=== PATIENT | male | born 1955 | race Two or more races ===

== ENCOUNTER 2016-08-17 01:01 | Inpatient (IN) | payer MEDICARE, OTHER ==
[~2016-08-17] VITALS: Ht 172.7 cm; Wt 90.7 kg
[2016-08-17] MEDS ORDERED: ALBUTEROL FS 2.5 MG/3 ML VIAL.NEB ONE ×2 (01:13→02:03)
[2016-08-17] MEDS ORDERED: IPRATROPIUM NEB FS 0.5 MG/2.5 ML AMPUL.NEB ONE (01:13)
[2016-08-17] MEDS ORDERED: methylPREDNISolone SOD SUCC 125 MG/2ML VIAL ONE (01:19)
--- NOTE | 2016-08-17 01:20 | NUR ---
60 YO MALE BB SELF. PT IS ALERT X 3, C/O SOB. PT AMBULATED TO ER BED, SKIN WARM AND DRY, RR EVREN AND UNLABORED. AWAITING RODERS FORM PROVIDER
[2016-08-17] MEDS ORDERED: ALBUTEROL FS 2.5 MG/3 ML VIAL.NEB CONTNEB ONE ×2 (01:30→02:00)
[2016-08-17] MEDS ORDERED: IPRATROPIUM NEB FS 0.5 MG/2.5 ML AMPUL.NEB NEB ONE (01:30)
[2016-08-17] MEDS ORDERED: methylPREDNISolone SOD SUCC 125 MG/2ML VIAL IV ONE (01:30)
[2016-08-17 01:31] LABS: BASOPHILS # (AUTO) 0.1 /CMM (0.0-0.2); BASOPHILS % (AUTO) 0.7 % (0.0-2.0); EOSINOPHILS # (AUTO) 1.1 /CMM (0.0-0.7); EOSINOPHILS % (AUTO) 8.3 % (0.0-6.0); HEMATOCRIT 52 % (39-51); HEMOGLOBIN 16.8 g/dL (13.5-17.5); LYMPHOCYTES # (AUTO) 2.3 /CMM (0.8-4.8); LYMPHOCYTES % (AUTO) 17.3 % (20.0-44.0); MEAN CORPUSCULAR HEMOGLOBIN 30 PG (26.0-33.0); MEAN CORPUSCULAR HGB CONC 32 g/dl (31.0-36.0); MEAN CORPUSCULAR VOLUME 93 fL (80-96); MONOCYTES # (AUTO) 0.7 /CMM (0.1-1.30); MONOCYTES % (AUTO) 5.5 % (2.0-12.0); NEUTROPHILS # (AUTO) 9.1 /CMM (1.8-8.9); NEUTROPHILS % (AUTO) 68.2 % (43.0-81.0); PLATELET COUNT (AUTO) 310 /CMM (150-450); RDW COEFFICIENT OF VARIATION 15.5 (11.5-15.0); RED BLOOD CELL COUNT(AUTO) 5.61 MIL/uL (4.5-6.0); WHITE BLOOD COUNT (AUTO) 13.3 K/uL (4.3-11.0)
--- NOTE | 2016-08-17 01:31 | NUR ---
MEDICATED PT ORDERED
--- NOTE | 2016-08-17 01:38 | NUR ---
RADIOLOGY TEAM AT BED SIDE FOR EVAL
[2016-08-17 01:43] LABS: CALCIUM, SERUM 9.4 mg/dL (8.5-10.1); CARBON DIOXIDE 34 mmol/L (21-32); CHLORIDE 102 mmol/L (98-107); GFR 76 mL/min (>60); GLUCOSE 92 mg/dL (74-106); POTASSIUM 4.4 mmol/L (3.5-5.1); SODIUM SERUM 141 mmol/L (136-145); UREA NITROGEN, BLOOD 16 mg/dL (7-18)
[2016-08-17 01:49] LABS: TROPONIN I < 0.017 ng/mL (0.00-0.056)
[2016-08-17 01:54] LABS: LACTIC ACID 2.2 mmol/L (0.4-2.0)
[2016-08-17 02:03] LABS: ALANINE AMINOTRANSFERASE 21 U/L (12-78); ALKALINE PHOSPHATASE 110 U/L (46-116); ASPARTATE AMINOTRANSFERASE 10 U/L (15-37); B-TYPE NATRIURETIC PEPTIDE 30 PG/ML (0-125); BILIRUBIN,DIRECT 0.1 mg/dL (0.0-0.2); BILIRUBIN,TOTAL 0.2 mg/dL (0.2-1.0); TOTAL PROTEIN, SERUM 7.5 g/dL (6.4-8.2)
[2016-08-17 02:11] LABS: ABG BASE EXCESS 5.7 mmol/L; ABG PCO2 51.7 mmHg (35.0-45.0); ABG PO2 55.1 mmHg (75.0-100.0); ABG TOTAL HEMOGLOBIN 17.1 G/dL (13.5-18.0); AaDO2 32.7 mmHg; COHb 1.2 % (0.5-1.5); MetHb 0.7 % (0.0-1.5); O2Hb 87.3 % (94.0-97.0); SITE, ABG Right Radial; VENT MODE, BG RA
--- NOTE | 2016-08-17 02:35 | NUR ---
PER MD BENTON, NO IV FLUIDS NEEDED
[2016-08-17] MEDS ORDERED: CALC500T51 PO (02:49)
[2016-08-17] MEDS ORDERED: PROC10TA PO (02:49)
[2016-08-17] MEDS ORDERED: ACYC800T PO (02:49)
[2016-08-17] MEDS ORDERED: CARV25TA2 PO (02:49)
[2016-08-17] MEDS ORDERED: NITR0.3T SL (02:49)
[2016-08-17] MEDS ORDERED: METF-835 PO (02:49)
[2016-08-17] MEDS ORDERED: NEVI400T4 PO (02:49)
[2016-08-17] MEDS ORDERED: ARIP5TAB4 PO (02:49)
[2016-08-17] MEDS ORDERED: HYDR-552 PO (02:49)
[2016-08-17] MEDS ORDERED: GABA-534 PO (02:49)
[2016-08-17] MEDS ORDERED: SERT100T12 PO (02:49)
[2016-08-17] MEDS ORDERED: AMLO10TA2 PO (02:49)
[2016-08-17] MEDS ORDERED: ZOLP10TA6 PO (02:49)
--- NOTE | 2016-08-17 03:55 | NUR ---
MD CHANG NOTIFIED ABOUT LACTIC ACID
--- NOTE | 2016-08-17 03:59 | NUR ---
TRANSPORTED PT TO TELE BED WITHOUG INCIDENT
[2016-08-17 04:00] VITALS: BP 122/76
[2016-08-17] MEDS ORDERED: ACETAMINOPHEN 325 MG TABLET PO PRN (04:00)
[2016-08-17] MEDS ORDERED: ENOXAPARIN SODIUM 40 MG/0.4 ML DISP.SYRIN SQ SCH (04:00)
[2016-08-17] MEDS ORDERED: ONDANSETRON HCL/PF 4 MG/2 ML VIAL IVP PRN (04:00)
[2016-08-17] MEDS ORDERED: MAG HYDROX/AL HYDROX/SIMETH 30 ML UDC PO PRN (04:00)
[2016-08-17] MEDS ORDERED: IPRATROPIUM NEB FS 0.5 MG/2.5 ML AMPUL.NEB NEB PRN (04:00)
[2016-08-17] MEDS ORDERED: LEVOFLOXACIN 750 MG /D5W 150ML 750 MG in PREMIX 1 EA IV SCH (04:00)
[2016-08-17] MEDS ORDERED: ALBUTEROL FS 2.5 MG/3 ML VIAL.NEB NEB PRN (04:00)
[2016-08-17] MEDS ORDERED: ZOLPIDEM TARTRATE 5 MG TABLET PO PRN (04:00)
[2016-08-17] MEDS ORDERED: Z GUARD REMEDY 2 OZ OINT TP PRN (04:00)
[2016-08-17] MEDS ORDERED: MORPHINE SULFATE INJ 2 MG/ML DISP.SYRIN IV PRN (04:00)
[2016-08-17] MEDS ORDERED: MAGNESIUM HYDROXIDE 30 ML UDC PO PRN (04:00)
--- NOTE | 2016-08-17 04:15 | NUR ---
INVESTOR RELATIONS ASSOCIATE ADMITTING NOTE RECEIVED PT COMING FROM ER VIA GURNEY, PT IS AWAKE AND ALERT ORIENTED X4, FRIEND IS AT BEDSIDE, NO PAIN OR RESPIRATORY DISTRESS NOTED DURING PHYSICAL ASSESSMENT, PT IS ABLE TO AMBULATE WITH ASSISTANCE, SKIN IS INTACT, PT IS CLEAN/DRY AND COMFORTABLE, WILL CONTINUE TO MONITOR CLOSELY.
[2016-08-17] MEDS ORDERED: ENOXAPARIN SODIUM 40 MG/0.4 ML DISP.SYRIN SQ ONE (04:49)
[2016-08-17] MEDS ORDERED: LEVOFLOXACIN 500 MG /D5W 100ML 100 ML IV ONE (04:50)
[2016-08-17 05:00] VITALS: BP 122/76
[2016-08-17] MEDS ORDERED: IV NS 0.9% 250 ML IV ONE (05:14)
[2016-08-17] MEDS ORDERED: SECONDARY IV SET 1 EA INFUS.SET MC ONE ×2 (05:35→18:16)
[2016-08-17] MEDS ORDERED: IV SET PRIMARY PUMP SET 1 EA INFUS.SET MC ONE (05:35)
[2016-08-17] MEDS: LEVOFLOXACIN 500 MG /D5W 100ML 500 MG in PREMIX 1 EA IV SCH (05:45)
--- NOTE | 2016-08-17 06:37 | NUR ---
PT REMAINED STABLE DURING FOREST RANGER, ATB GIVEN ORDER, PT SHOWED NO SIGNIFICANT CHANGES IN HIS STATUS, CLEAN/DRY AND COMFORTABLE, SAFETY MEASURES IN PLACE, ALL NEEDS ANTICIPATED AND ATTENDED TO, WILL ENDORSE TO INCOMING NURSE FOR EASTON.
--- NOTE | 2016-08-17 08:00 | NUR ---
CONSERVATION EDUCATOR NOTES PATIENT NOTED WITH O2 SATURATION OF 92 WITHOUT OXYGEN, PATIENT PLACES ON 2L OF OXYGEN VIA NASAL CANULA AND BREATHING TREATMENT PROVIDED BY RT, O2 SATURATION CHECKED ABOVE 95% WILL CONTINUE TO MONITOR.
[2016-08-17 08:41] VITALS: BP 126/78
[2016-08-17] MEDS: ALBUTEROL FS 2.5 MG/3 ML VIAL.NEB NEB SCH ×3 (08:41→20:20)
[2016-08-17] MEDS: IPRATROPIUM NEB FS 0.5 MG/2.5 ML AMPUL.NEB NEB SCH ×3 (08:42→20:20)
[2016-08-17] MEDS: methylPREDNISolone SOD SUCC 125 MG/2ML VIAL IV SCH ×2 (08:55→17:06)
[2016-08-17] MEDS: PANTOPRAZOLE 40 MG TABLET.DR PO SCH (08:55)
[2016-08-17] MEDS: HYDROCODONE/APAP 5/325MG 1 EACH TABLET PO PRN ×2 (08:56→18:28)
[2016-08-17] MEDS: IV NS 0.9% 1,000 ML IV PRN (08:57)
--- NOTE | 2016-08-17 12:00 | NUR ---
MS RN NOTES PATIENT SEEN AND EVALUATED BY DR. MINOR ORDERS NOTED AND CARRIED OUT.
[2016-08-17 14:30] VITALS: BP 134/91
[2016-08-17 16:00] VITALS: BP 116/75
[2016-08-17] MEDS: ACIDOPHILUS/BULGARICUS 1 EACH TAB.CHEW PO SCH (18:21)
[2016-08-17] MEDS: CLINDAMYCIN 600 MG in IV D5W 50 ML IV SCH (18:21)
[2016-08-17] MEDS: PRIMAQUINE 15 MG TABLET PO SCH (18:21)
--- NOTE | 2016-08-17 18:36 | NUR ---
PLASTIC MANAGER NOTES PATIENT IN BED RESTING NO SOB OR ACUTE DISTRESS NOTED. ALL DUE MEDICATIONS GIVEN, ALL NEEDS MET IV INTACT ON RIGHT HAND RUNNING NS AT 75ML/HR WILL ENDORSE TO PM SHIFT EASTON.
--- NOTE | 2016-08-17 19:40 | NUR ---
TELE/RN RECEIVE PATIENT APPEAR SLEEPING, AROUSABLE, APPEAR COMFORTABLE, NO DISTRESS NOTED, CALL LIGHT IN REACH. WILL MONITOR.
[2016-08-17 20:26] VITALS: BP 140/80
--- NOTE | 2016-08-17 21:32 | NUR ---
TELE/RN PATIENT AWAKE. R.T. UNABLE TO OBTAIN SPUTUM SPECIMEN.
[2016-08-18] MEDS: IV NS 0.9% 1,000 ML IV PRN
[2016-08-18 00:22] VITALS: BP 111/69
[2016-08-18] MEDS: ALBUTEROL FS 2.5 MG/3 ML VIAL.NEB NEB SCH ×4 (00:55→19:46)
[2016-08-18] MEDS: IPRATROPIUM NEB FS 0.5 MG/2.5 ML AMPUL.NEB NEB SCH ×4 (00:55→19:46)
[2016-08-18] MEDS: CLINDAMYCIN 600 MG in IV D5W 50 ML IV SCH ×2 (02:26→10:01)
[2016-08-18] MEDS: HYDROCODONE/APAP 5/325MG 1 EACH TABLET PO PRN (02:44)
[2016-08-18] MEDS: LEVOFLOXACIN 500 MG /D5W 100ML 500 MG in PREMIX 1 EA IV SCH (04:01)
[2016-08-18 04:45] VITALS: BP 98/63
--- NOTE | 2016-08-18 06:13 | NUR ---
TELE/RN PATIENT IS SLEEPING, AROUSABLE, NO DISTRESS NOTED. ALL NEEDS ATTENDED AT THIS TIME. WILL CONTINUE TO MONITOR.
[2016-08-18 06:51] LABS: BASOPHILS % (AUTO) 0.2 % (0.0-2.0); HEMATOCRIT 47 % (39-51); HEMOGLOBIN 15.1 g/dL (13.5-17.5); LYMPHOCYTES # (AUTO) 1.5 /CMM (0.8-4.8); LYMPHOCYTES % (AUTO) 10.2 % (20.0-44.0); MEAN CORPUSCULAR HEMOGLOBIN 30 PG (26.0-33.0); MEAN CORPUSCULAR HGB CONC 32 g/dl (31.0-36.0); MEAN CORPUSCULAR VOLUME 93 fL (80-96); MONOCYTES # (AUTO) 0.5 /CMM (0.1-1.30); MONOCYTES % (AUTO) 3.8 % (2.0-12.0); NEUTROPHILS # (AUTO) 12.3 /CMM (1.8-8.9); NEUTROPHILS % (AUTO) 85.8 % (43.0-81.0); PLATELET COUNT (AUTO) 291 /CMM (150-450); RDW COEFFICIENT OF VARIATION 15.3 (11.5-15.0); RED BLOOD CELL COUNT(AUTO) 5.03 MIL/uL (4.5-6.0); WHITE BLOOD COUNT (AUTO) 14.4 K/uL (4.3-11.0)
[2016-08-18 07:08] LABS: CALCIUM, SERUM 8.2 mg/dL (8.5-10.1); CREATININE 1.1 mg/dL (0.6-1.3); MAGNESIUM 1.6 mg/dL (1.8-2.4); PHOSPHORUS 3.6 mg/dL (2.5-4.9)
[2016-08-18 08:00] VITALS: BP 126/84
--- NOTE | 2016-08-18 08:00 | NUR ---
DUCT MAKER NOTED PATIENT IN BED RESTING NO SOB OR ACUTE DISTRESS NOTED. BED IN LOW LOCKED POSITION. CALL LIGHT WITHIN REACH. WILL CONTINUE TO MONITOR. IV INTACT PATENT.
[2016-08-18] MEDS: methylPREDNISolone SOD SUCC 125 MG/2ML VIAL IV SCH ×2 (08:29→17:04)
[2016-08-18] MEDS: PANTOPRAZOLE 40 MG TABLET.DR PO SCH (08:29)
[2016-08-18] MEDS: ACIDOPHILUS/BULGARICUS 1 EACH TAB.CHEW PO SCH ×3 (08:29→17:04)
[2016-08-18] MEDS: ENOXAPARIN SODIUM 40 MG/0.4 ML DISP.SYRIN SQ SCH (08:30)
[2016-08-18 09:00] LABS: *BASOS 0 % (.); *EOS 0 % (.); *EOS, ABSOLUTE 0.1 x10E3/uL (0.0-0.4); *HCT 48.9 % (37.5-51.0); *HGB 16.4 g/dL (12.6-17.7); *IMMATURE GRANULOCYTES 0 % (.); *LYMPHOCYTES 13 % (.); *LYMPHS, ABSOLUTE 1.6 x10E3/uL (0.7-3.1); *MCH 31.6 pg (26.6-33.0); *MCHC 33.5 g/dL (31.5-35.7); *MCV 94 fL (79-97); *MONOCYTES 1 % (.); *MONOS, ABSOLUTE 0.1 x10E3/uL (0.1-0.9); *NEUTROPHILS 86 % (.); *NEUTROPHILS, ABSOLUTE 10.7 x10E3/uL (1.4-7.0); *PLT 297 x10E3/uL (150-379); *RBC 5.19 x10E6/uL (4.14-5.80); *RDW 15.2 % (12.3-15.4); *WBC 12.5 x10E3/uL (3.4-10.8)
[2016-08-18] MEDS: PRIMAQUINE 15 MG TABLET PO SCH (10:00)
--- NOTE | 2016-08-18 10:00 | NUR ---
LOUVER MORTISER OPERATOR NOTES DR. GRIMM INFORMED OF PATIENTS EPISODES OF BRADYCARDIA. PATIENTS PULSE AT 78 NO SIGNS OF DISTRESS NOTED. DENIES ANY DIZZINESS OR WEAKNESS. DR. ARAIZA WILL EVALUATE PATIENT. Addendum: 08/18/16 at 1657 by MAILE GARIBAY RN ERROR WRONG PATIENT.
--- NOTE | 2016-08-18 12:00 | NUR ---
CIRCULATION CREW LEADER NOTES PATIENT SEEN AND EVALUATED BY DR. HERNANDEZ ORDERS NOTED AND CARRIED OUT.
--- NOTE | 2016-08-18 13:00 | NUR ---
MS RN NOTES DR. MINOR REMINDED OF PATIENTS MEDICATION RECONCILIATION OF HOME MEDICATIONS, STATES WILL DO.
[2016-08-18] MEDS: Magnesium 1GM/D5W 100ML PREMIX 100 ML IV SCH ×2 (13:47→15:10)
[2016-08-18] MEDS ORDERED: SODIUM CL FOR INHALATION 3% 15 ML VIAL.NEB IH ONE (14:00)
[2016-08-18 14:21] LABS: *% CD 4 POS. LYMPH 14.7 % (30.8-58.5); *% CD 8 POS. LYMPH 37.6 % (12.0-35.5); *ABSOLUTE CD 4 HELPER 235 /uL (359-1519); *ABSOLUTE CD 8 SUPPRESSOR 602 /uL (109-897); *CD4/CD8 RATIO 0.39 (0.92-3.72)
[2016-08-18 16:00] VITALS: BP 128/81
--- NOTE | 2016-08-18 18:16 | NUR ---
SEWING TECHNIQUES DEMONSTRATOR NOTES PATIENT IN BED RESTING NO SOB OR ACUTE DISTRESS NOTED. IV INTACT PATENT. DENIES ANY DISTRESS. ALL DUE MEDICATIONS GIVEN. ALL NEEDS MET WILL ENDORSE TO PM SHIFT EASTON.
--- NOTE | 2016-08-18 19:00 | NUR ---
RN NOTE RECEIVED REPORT. PT AAOX4, UP OUT OF BED. APPEARS TO BE CRYING, SAID HE WANTS TO GO HOME. NO C/O OF PAIN OR DISCOMFORT AT THIS TIME, NO C/O OF SOB. BREATHING EVEN AND NON-LABORED. R HAND INTACT AND PATENT, FLUIDS OFF AT THIS TIME PER PT REQUEST. CALL LIGHT IN REACH, WILL CONT TO MONITOR.
[2016-08-18 20:00] VITALS: BP 145/96
[2016-08-19] MEDS: IPRATROPIUM NEB FS 0.5 MG/2.5 ML AMPUL.NEB NEB SCH ×2 (00:57→13:15)
[2016-08-19] MEDS: ALBUTEROL FS 2.5 MG/3 ML VIAL.NEB NEB SCH ×2 (00:57→08:30)
--- NOTE | 2016-08-19 01:20 | NUR ---
RN NOTE PT RESTING IN BED WITH EYES CLOSED. NO S/S OF ANY DISTRESS. WILL CONT TO MONITOR.
[2016-08-19] MEDS ORDERED: ZOLPIDEM TARTRATE 10 MG TABLET ONE (01:44)
[2016-08-19] MEDS ORDERED: ZOLPIDEM TARTRATE 5 MG TABLET ONE (01:46)
[2016-08-19] MEDS ORDERED: ZOLPIDEM TARTRATE 5 MG TABLET PO ONE (02:00)
[2016-08-19] MEDS: LEVOFLOXACIN 500 MG /D5W 100ML 500 MG in PREMIX 1 EA IV SCH (04:25)
--- NOTE | 2016-08-19 06:39 | NUR ---
RN NOTE NO SIGNIFICANT CHANGES THIS SHIFT. PT RESTING IN BED WITH EYES CLOSED, NO SOB OR WHEEZING NOTED. ON NC @ 1L. NO S/S OF ANY DISTRESS. IV PATENT AND INTACT, TOLERATING FLUIDS WELL. CALL LIGHT IN REACH, WILL F/U WITH DAY SHIFT FOR EASTON.
[2016-08-19 07:12] LABS: CALCIUM, SERUM 8.6 mg/dL (8.5-10.1); MAGNESIUM 2.2 mg/dL (1.8-2.4); POTASSIUM 3.9 mmol/L (3.5-5.1)
--- NOTE | 2016-08-19 07:31 | NUR ---
RN AM NOTES RECEIVED PATIENT IN BED ASLEEP, BUT AROUSABLE, A/O X3. WISHES TO DISCHARGE TODAY, MD AWARE, CHARGE NURSE AWARE. WILL CONTINUE TO MONITOR.
[2016-08-19 08:00] VITALS: BP 128/80
[2016-08-19] MEDS: ACIDOPHILUS/BULGARICUS 1 EACH TAB.CHEW PO SCH ×2 (08:09→13:00)
[2016-08-19] MEDS: methylPREDNISolone SOD SUCC 125 MG/2ML VIAL IV SCH (08:09)
[2016-08-19] MEDS: PANTOPRAZOLE 40 MG TABLET.DR PO SCH (08:09)
[2016-08-19] MEDS: ENOXAPARIN SODIUM 40 MG/0.4 ML DISP.SYRIN SQ SCH (08:11)
[2016-08-19] MEDS ORDERED: predniSONE 20 MG TABLET PO SCH (10:30)
--- NOTE | 2016-08-19 10:30 | NUR ---
PATIENT REFUSED MEDICATION BECAUSE HE IS ABOUT TO GO HOME AND DOES NOT WANT TO TAKE ANY MORE MEDS HERE. EXPLAINED RISKS AND BENEFITS. PATIENT STILL REFUSED.
--- NOTE | 2016-08-19 13:00 | NUR ---
PATIENT REFUSED PROBIOTIC BECAUSE HE JUST WANTS TO GO HOME. AWAITING DISCHARGE PAPERWORK.
--- NOTE | 2016-08-19 14:45 | NUR ---
ADDICTIONS COUNSELOR ASSISTANT NOTES PATIENT DISCHARGED HOME IN STABLE CONDITION, NO SOB OR DISTRESS NOTED. ACCOMPANIED BY PARTNER AND LEFT IN PRIVATE CAR WITH PERSONAL BELONGINGS. RX GIVEN ALONG WITH DISCHARGE PACKET. PATIENT TEACHING DONE. PATIENT LEFT FACILITY SAFELY.
== END 2016-08-19 14:35 | disposition home or self-care (01) | DRG 974 ==
LOC: ER 01:03 → TELE 03:35 → MED 08-18 12:40
PROVIDERS: ADMIT Family Medicine; ATTEND Internal Medicine
DX: B20 Human immunodeficiency virus [HIV] disease (principal); J96.01 Acute respiratory failure with hypoxia; B59 Pneumocystosis; J96.02 Acute respiratory failure with hypercapnia; J45.901 Unspecified asthma with (acute) exacerbation; J98.11 Atelectasis; E11.9 Type 2 diabetes mellitus without complications; I10 Essential (primary) hypertension; F32.9 Major depressive disorder, single episode, unspecified; E66.01 Morbid (severe) obesity due to excess calories; G47.33 Obstructive sleep apnea (adult) (pediatric); J20.9 Acute bronchitis, unspecified
CPT/HCPCS: 36415; 36600; 71010-TC; 80048-TC; 80076-TC; 82103; 83605-TC; 83735-TC; 83880; 84100-TC; 84484-TC; 85025-TC; 85378-TC; 86360; 87040-TC; 87070-TC; 87081-TC; 87400; 93307-TC; 94640-TC; 94799-TC; 97001-TC; A4216; A4218; A4606; J1650; J1956; J2930; J3475; J3490; J7030; J7050; J7060; Z7610

== ENCOUNTER 2016-12-31 17:40 | Inpatient (IN) | payer MEDICARE ==
[~2016-12-31] VITALS: Ht 175.3 cm; Wt 117.9 kg
[~2016-12-31 17:40] MED LIST: ACYC800T PO; AMLO10TA2 PO; ARIP5TAB4 PO; CALC500T51 PO; CARV25TA2 PO; GABA-534 PO; HYDR-552 PO; METF-835 PO; NEVI400T4 PO; NITR0.3T SL; PROC10TA PO; SERT100T12 PO; ZOLP10TA6 PO
--- NOTE | 2016-12-31 17:43 | NUR ---
LACIE LYNNHOLYOKE MEDICAL CENTERJovanny FOR SOB X TODAY. PATIENT RECEIVED AAO4. APPEARS IN MILD DISTRESS, PT CURRENTLY ON BREATHING TX, SATING 97% ON ROOM AIR AT THIS TIME. PATIENT DENIES CHEST PAIN. GOWNED AND PLACED PT TO TELE MONITOR. VSS. PENDING MD EVALUATION
[2016-12-31] MEDS ORDERED: ASPIRIN 81 MG TAB.CHEW ONE (18:15)
[2016-12-31] MEDS ORDERED: methylPREDNISolone SOD SUCC 125 MG/2ML VIAL ONE (18:15)
--- NOTE | 2016-12-31 18:18 | NUR ---
CALLED RT FOR BREATHING TX
--- NOTE | 2016-12-31 18:19 | NUR ---
MEDICATED PT ORDERED
[2016-12-31 18:20] LABS: BASOPHILS # (AUTO) 0.1 /CMM (0.0-0.2); BASOPHILS % (AUTO) 0.9 % (0.0-2.0); EOSINOPHILS # (AUTO) 0.8 /CMM (0.0-0.7); EOSINOPHILS % (AUTO) 6.8 % (0.0-6.0); HEMATOCRIT 48 % (39-51); HEMOGLOBIN 15.9 g/dL (13.5-17.5); LYMPHOCYTES # (AUTO) 1.9 /CMM (0.8-4.8); LYMPHOCYTES % (AUTO) 15.5 % (20.0-44.0); MEAN CORPUSCULAR HEMOGLOBIN 32 PG (26.0-33.0); MEAN CORPUSCULAR HGB CONC 33 g/dl (31.0-36.0); MEAN CORPUSCULAR VOLUME 95 fL (80-96); MONOCYTES # (AUTO) 0.9 /CMM (0.1-1.30); MONOCYTES % (AUTO) 7.9 % (2.0-12.0); NEUTROPHILS # (AUTO) 8.3 /CMM (1.8-8.9); NEUTROPHILS % (AUTO) 68.9 % (43.0-81.0); PLATELET COUNT (AUTO) 238 /CMM (150-450); RDW COEFFICIENT OF VARIATION 14.9 (11.5-15.0); RED BLOOD CELL COUNT(AUTO) 5.03 MIL/uL (4.5-6.0)
--- NOTE | 2016-12-31 18:29 | NUR ---
RT AT BS FOR BREATHING TX
[2016-12-31] MEDS ORDERED: ASPIRIN 81 MG TAB.CHEW PO ONE (18:30)
[2016-12-31] MEDS ORDERED: ALBUTEROL FS 2.5 MG/3 ML VIAL.NEB CONTNEB ONE ×2 (18:30)
[2016-12-31] MEDS ORDERED: methylPREDNISolone SOD SUCC 125 MG/2ML VIAL IV ONE (18:30)
[2016-12-31] MEDS ORDERED: IPRATROPIUM NEB FS 0.5 MG/2.5 ML AMPUL.NEB NEB ONE (18:30)
[2016-12-31 18:31] LABS: CALCIUM, SERUM 8.6 mg/dL (8.5-10.1); CARBON DIOXIDE 31 mmol/L (21-32); CHLORIDE 101 mmol/L (98-107); CREATININE 0.8 mg/dL (0.6-1.3); GLUCOSE 100 mg/dL (74-106); POTASSIUM 3.8 mmol/L (3.5-5.1); SODIUM SERUM 139 mmol/L (136-145); UREA NITROGEN, BLOOD 18 mg/dL (7-18)
[2016-12-31] MEDS ORDERED: ALBUTEROL FS 2.5 MG/3 ML VIAL.NEB ONE (18:31)
[2016-12-31] MEDS ORDERED: IPRATROPIUM NEB FS 0.5 MG/2.5 ML AMPUL.NEB ONE (18:31)
[2016-12-31 18:33] LABS: INR 1.02 (0.87-1.13); PROTHROMBIN TIME 10.6 SECS (9.5-12.7)
[2016-12-31] MEDS ORDERED: ABAC1TAB3 PO (18:33)
[2016-12-31] MEDS ORDERED: METF500T4 PO (18:33)
[2016-12-31] MEDS ORDERED: ALBU8.5H2 IH (18:33)
[2016-12-31] MEDS ORDERED: PROC10TA29 PO (18:33)
[2016-12-31 18:40] LABS: TROPONIN I < 0.017 ng/mL (0.00-0.056)
[2016-12-31 18:44] LABS: ALANINE AMINOTRANSFERASE 24 U/L (12-78); ALBUMIN 4.2 g/dL (3.4-5.0); ALKALINE PHOSPHATASE 106 U/L (46-116); ASPARTATE AMINOTRANSFERASE 15 U/L (15-37); B-TYPE NATRIURETIC PEPTIDE 93 PG/ML (0-125); BILIRUBIN,DIRECT 0.1 mg/dL (0.0-0.2); BILIRUBIN,TOTAL 0.5 mg/dL (0.2-1.0); TOTAL PROTEIN, SERUM 7.2 g/dL (6.4-8.2)
[2016-12-31] MEDS ORDERED: LEVOFLOXACIN 750 MG /D5W 150ML 150 ML IV ONE (18:51)
[2016-12-31] MEDS ORDERED: LEVOFLOXACIN 750 MG /D5W 150ML PIGGYBACK IV ONE (19:00)
--- NOTE | 2016-12-31 19:17 | NUR ---
DEEJAY MEDEL SPOKE TO [facility].
--- NOTE | 2016-12-31 19:18 | NUR ---
MAYNOR JEAN AT BEDSIDE TO KATHY YUEN
--- NOTE | 2016-12-31 19:29 | NUR ---
CONTINUITY OF CARE TRANSFERRED TO NURSE ED
--- NOTE | 2016-12-31 19:59 | NUR ---
NOTED PT O2 SAT 88% ON RA. PLACE PT BACK ON 02@2L/NC, O2 SAT INCREASED TO 96%.
[2016-12-31] MEDS ORDERED: ALBUTEROL FS 2.5 MG/0.5 ML VIAL.NEB NEB PRN ×2 (20:00→20:15)
[2016-12-31] MEDS ORDERED: NITROGLYCERIN 0.4 MG/TAB BOTTLE SL PRN ×2 (20:00→20:15)
[2016-12-31] MEDS ORDERED: IPRATROPIUM NEB FS 0.5 MG/2.5 ML AMPUL.NEB NEB PRN ×2 (20:00→20:15)
--- NOTE | 2016-12-31 20:12 | NUR ---
REPORT CALLED TO TELE 1 DEE MARTIN. WILL TRANSPORT PT VIA ACLS PRTOCOL.
[2016-12-31 20:20] VITALS: BP 126/84
--- NOTE | 2016-12-31 20:20 | NUR ---
venkata rn notes received pts AND report from er nurse ED, pts is 61 y/o a/ox4 ambulatory, accpd by friend charles , under the service of eligibility examiner lorne ochoa. with admitting dx of acute asthma exacerbation , admission routine care rendered , body checked done, noted with bilateral knee redness otherwise skin is intact.pts on venkata status tele -sr on the monitor, no sob no distress noted v/s stable afebrile.allergy to sulfa . pts on 4 liters of o2 via nc. sating 93%. all needs attended too call light within reach , due meds given as ordered, kept pts clean dry and comfortable.
[2016-12-31] MEDS ORDERED: methylPREDNISolone SOD SUCC 40 MG/ML VIAL IV SCH (21:00)
[2016-12-31] MEDS: methylPREDNISolone SOD SUCC 40 MG/ML VIAL IV SCH (21:00)
--- NOTE | 2016-12-31 21:00 | NUR ---
venkata rn notes solumedrol and Levaquin dose for 2100hrs not given due to dose given in er. too close to give, cocoa press operator lorne made aware.
[2016-12-31] MEDS ORDERED: GABAPENTIN 300 MG CAPSULE PO SCH (22:00)
[2016-12-31] MEDS: GABAPENTIN 300 MG CAPSULE PO SCH (22:59)
[2016-12-31] MEDS: CARVEDILOL 12.5 MG TABLET PO SCH (23:01)
[2017-01-01] VITALS (9 sets, daily range): BP systolic 102–124; BP diastolic 61–78
--- NOTE | 2017-01-01 00:05 | NUR ---
venkata rn notes spoke to lorne animation director epic ,pts requesting for ambien, pts taking it daily at hs ,with order made and carried out ambien 10 mg po qhs, order noted and carried out
[2017-01-01] MEDS ORDERED: methylPREDNISolone SOD SUCC 40 MG/ML VIAL ONE (02:41)
[2017-01-01] MEDS: methylPREDNISolone SOD SUCC 40 MG/ML VIAL IV SCH ×3 (05:44→21:34)
--- NOTE | 2017-01-01 07:11 | NUR ---
venkata rn notes pt on bed responsive , remains on 4 liters of o2,sating 100% no significance change noted , will endorse to rn day shift for continuity of care
[2017-01-01] MEDS ORDERED: EPZICOM PO SCH (09:00)
[2017-01-01] MEDS ORDERED: ACYCLOVIR 800 MG TABLET PO SCH (09:00)
[2017-01-01] MEDS ORDERED: METFORMIN 500 MG TABLET PO SCH (09:00)
[2017-01-01] MEDS ORDERED: NEVIRAPINE 200 MG TABLET PO SCH ×2 (09:00)
[2017-01-01] MEDS ORDERED: LEVOFLOXACIN 750 MG /D5W 150ML 750 MG in PREMIX 1 EA IV SCH ×2 (09:00→18:00)
[2017-01-01] MEDS ORDERED: SERTRALINE HCL 50 MG TABLET PO SCH (09:00)
[2017-01-01] MEDS ORDERED: CARVEDILOL 6.25 MG TABLET PO SCH (09:00)
[2017-01-01] MEDS ORDERED: AMLODIPINE BESYLATE 10 MG TABLET PO SCH (09:00)
[2017-01-01] MEDS ORDERED: CALCIUM CARBONATE (1250) 500 MG TABLET PO SCH (09:00)
[2017-01-01] MEDS ORDERED: ARIPIPRAZOLE 5 MG TABLET PO SCH (09:00)
[2017-01-01] MEDS: METFORMIN 500 MG TABLET PO SCH ×2 (09:13→16:55)
[2017-01-01] MEDS: SERTRALINE HCL 50 MG TABLET PO SCH ×2 (09:13→16:54)
[2017-01-01] MEDS: ACYCLOVIR 800 MG TABLET PO SCH (09:14)
[2017-01-01] MEDS: CALCIUM CARBONATE (1250) 500 MG TABLET PO SCH ×2 (09:14→16:55)
[2017-01-01] MEDS: AMLODIPINE BESYLATE 10 MG TABLET PO SCH (09:14)
[2017-01-01] MEDS: CARVEDILOL 12.5 MG TABLET PO SCH ×2 (09:14→21:00)
[2017-01-01] MEDS: ARIPIPRAZOLE 5 MG TABLET PO SCH (09:15)
--- NOTE | 2017-01-01 12:55 | NUR ---
RN ITZEL; PRIMARY DR. BRIANNA WONG AT BEDSIDE UPDATE WAS GIVEN. DISCUSSED REGARDING PT STILL C/O SOB AND THAT PT IS HAVING BREATHING TREATMENTS NEEDED. WILL HAVE DR. SURESH COME AND EVALUATE HIM.
[2017-01-01] MEDS ORDERED: ALBUTEROL HALF STRENGTH 1.25 MG/3 ML VIAL.NEB NEB SCH (14:00)
[2017-01-01] MEDS: ALBUTEROL HALF STRENGTH 1.25 MG/3 ML VIAL.NEB NEB SCH ×3 (15:34→23:27)
[2017-01-01] MEDS: IPRATROPIUM NEB FS 0.5 MG/2.5 ML AMPUL.NEB NEB SCH ×3 (15:35→23:27)
--- NOTE | 2017-01-01 18:20 | NUR ---
DIRECTOR AND PROFESSOR; PAIN PT C/O BACK PAIN 11/23. PT TAKES NORCO 5/325 Q4HR PRN AT HOME. BRIANNA SCHWARTZ MADE AWARE. NEW ORDERS TO RESUME HOME MEDS GIVEN. ORDERS ENTERED. WILL F/U WITH PHARMACY.
[2017-01-01] MEDS: HYDROCODONE/APAP 5/325MG 1 EACH TABLET PO PRN (18:31)
[2017-01-01] MEDS ORDERED: ALPRAZOLAM 0.25 MG TABLET PO PRN (19:00)
[2017-01-01] MEDS: GABAPENTIN 300 MG CAPSULE PO SCH (21:35)
[2017-01-01] MEDS ORDERED: ZOLPIDEM TARTRATE 10 MG TABLET PO SCH (22:00)
[2017-01-02] VITALS: BP 107/71
[2017-01-02 04:00] VITALS: BP 103/69
[2017-01-02] MEDS: ALBUTEROL HALF STRENGTH 1.25 MG/3 ML VIAL.NEB NEB SCH ×4 (04:50→15:04)
[2017-01-02] MEDS: IPRATROPIUM NEB FS 0.5 MG/2.5 ML AMPUL.NEB NEB SCH ×4 (04:50→15:03)
[2017-01-02] MEDS: methylPREDNISolone SOD SUCC 40 MG/ML VIAL IV SCH ×2 (05:32→13:04)
--- NOTE | 2017-01-02 07:10 | NUR ---
SNOUT PULLER NOTE: RECEIVED PT RESTING COMFORTABLY IN BED, EASILY AWAKEN TO NAME. PT IS A&OX4. ON RA RESPIRATIONS EVEN AND UNLABORED WITH NO SOB NOTED. TELE MONITOR WITH SR. BACK PAIN W/ADULT PAIN SCALE 2/10 BUT REFUSED MED. LH G #18 INTACT AND PATENT. CARE PLAN REVIEWED AND PT VERBALIZED UNDERSTANDING. ALL NEEDS MET AND ANTICIPATED. BED LOW, LOCKED WITH CALL LIGHT WITHIN REACH. WILL CONT TO MONITOR.
[2017-01-02 08:00] VITALS: BP 112/71
[2017-01-02] MEDS: CARVEDILOL 12.5 MG TABLET PO SCH (08:34)
[2017-01-02] MEDS: CALCIUM CARBONATE (1250) 500 MG TABLET PO SCH (08:34)
[2017-01-02] MEDS: ACYCLOVIR 800 MG TABLET PO SCH (08:35)
[2017-01-02] MEDS: ARIPIPRAZOLE 5 MG TABLET PO SCH (08:35)
[2017-01-02] MEDS: SERTRALINE HCL 50 MG TABLET PO SCH (08:35)
[2017-01-02] MEDS: METFORMIN 500 MG TABLET PO SCH (08:36)
[2017-01-02] MEDS: AMLODIPINE BESYLATE 10 MG TABLET PO SCH (08:51)
[2017-01-02] MEDS: HYDROCODONE/APAP 5/325MG 1 EACH TABLET PO PRN (11:25)
--- NOTE | 2017-01-02 11:40 | NUR ---
GREEN CHAIN PULLER NOTE: PT TAKEN TO RADIOLOGY.
[2017-01-02] MEDS ORDERED: KEY,NONCONTROL,TO KEEP IN PYXI 1 EA MC ONE (11:48)
[2017-01-02 12:00] VITALS: BP 103/60
--- NOTE | 2017-01-02 12:15 | NUR ---
BLEND TECHNICIAN NOTE: PT BACK FROM RADIOLOGY.
[2017-01-02] MEDS ORDERED: METH4TAB17 PO (13:34)
[2017-01-02] MEDS ORDERED: LEVO750T21 PO (13:34)
--- NOTE | 2017-01-02 16:00 | NUR ---
SYSTEM TRAINER NOTE: PT D/C HOME TODAY IN STABLE CONDITION. VS: 97.9 TEMP, HR 82, RR 20, O2 SAT 95%, BP 103/60. DENIES PAIN. DISCHARGE FORMS AND BELONGINGS LIST SIGNED. PICTURES TAKEN. RX GIVEN. S/S OF WHEN TO SEEK EMERGENCY MEDICAL CARE REVIEWED. ADVISED TO FOLLOW UP WITH PRIMARY PHYSICIAN. ORDERS CARRIED OUT. PT LEFT AMBULATORY WITH HIS FRIEND AT 1600.
== END 2017-01-02 16:03 | disposition home or self-care (01) | DRG 202 ==
LOC: ER 17:42 → TELE-TD 20:24 → TELE1 01-01 13:23
PROVIDERS: ADMIT Nurse Practitioner Acute Care; ATTEND Nurse Practitioner Acute Care
DX: J45.901 Unspecified asthma with (acute) exacerbation (principal); J96.02 Acute respiratory failure with hypercapnia; J96.01 Acute respiratory failure with hypoxia; E66.01 Morbid (severe) obesity due to excess calories; I10 Essential (primary) hypertension; E11.9 Type 2 diabetes mellitus without complications; Z88.1 Allergy status to other antibiotic agents; Z88.2 Allergy status to sulfonamides; F32.9 Major depressive disorder, single episode, unspecified; G47.33 Obstructive sleep apnea (adult) (pediatric); Z68.38 Body mass index [BMI] 38.0-38.9, adult; Z79.899 Other long term (current) drug therapy; Z87.891 Personal history of nicotine dependence; Z91.19 Patient's noncompliance with other medical treatment and regimen; E88.81 Metabolic syndrome and other insulin resistance; J06.9 Acute upper respiratory infection, unspecified
CPT/HCPCS: 36415; 70220-TC; 71010-TC; 80048-TC; 80076-TC; 83605-TC; 83880; 84484-TC; 85025-TC; 85730-TC; 87040-TC; 87081-TC; 94799-TC; A4216; A4606; A6402; J1956; J2920; J2930; Z7610

== ENCOUNTER 2019-10-16 10:18 | Inpatient (IN) | payer MEDICARE ==
[~2019-10-16] VITALS: Ht 177.8 cm; Wt 101.6 kg
[~2019-10-16 10:18] MED LIST changes: +ABAC1TAB17 PO; +ABAC1TAB3 PO; +ALBU18HF2 IH; +ALBU8.5H8 IH; -AMLO10TA2 PO; +AMLO10TA7 PO; +ARIP5TAB10 PO; -ARIP5TAB4 PO; +ASPI-1169 PO; +CALC-15 PO; -CALC500T51 PO; +CALC500T53 PO; +CARV25TA PO; +CYAN500T66 PO; +HYDR-4384 PO; -HYDR-552 PO; +LEVO750T21 PO; +METF-440 PO; -METF-835 PO; +METH4TAB17 PO; +MULT-661 PO; -NEVI400T4 PO; +NEVI400T5 PO; -PROC10TA PO; +PROC10TA29 PO; +TAMS-12 PO; +TEST200V3 IM; +[UNRECOGNIZED DRUG - CODE] PO
[2019-10-16] MEDS ORDERED: IV NS 0.9% 1,000 ML BAG IV ONE ×2 (10:30→12:00)
[2019-10-16 10:53] LABS: BASOPHILS # (AUTO) 0.1 /CMM (0.0-0.2); BASOPHILS % (AUTO) 1.1 % (0.0-2.0); EOSINOPHILS % (AUTO) 3.1 % (0.0-6.0); HEMATOCRIT 29 % (39-51); HEMOGLOBIN 9.7 g/dL (13.5-17.5); LYMPHOCYTES # (AUTO) 2.9 /CMM (0.8-4.8); LYMPHOCYTES % (AUTO) 29.3 % (20.0-44.0); MEAN CORPUSCULAR HGB CONC 34 g/dl (31.0-36.0); MEAN CORPUSCULAR VOLUME 90 fL (80-96); MONOCYTES # (AUTO) 0.8 /CMM (0.1-1.30); MONOCYTES % (AUTO) 7.9 % (2.0-12.0); NEUTROPHILS # (AUTO) 5.8 /CMM (1.8-8.9); NEUTROPHILS % (AUTO) 58.6 % (43.0-81.0); PLATELET COUNT (AUTO) 485 /CMM (150-450); RED BLOOD CELL COUNT(AUTO) 3.21 MIL/uL (4.5-6.0); WHITE BLOOD COUNT (AUTO) 9.9 K/uL (4.3-11.0)
--- NOTE | 2019-10-16 11:00 | NUR ---
Mario Alberto odom, c/o weakness since this morning. ON 02 @ 2lpm via NC, connected to the monitor and pulse ox. kept comfortable, will continue to monitor accordingly.
[2019-10-16 11:05] LABS: CALCIUM, SERUM 9.1 mg/dL (8.5-10.1); CARBON DIOXIDE 24 mmol/L (21-32); CHLORIDE 101 mmol/L (98-107); CREATININE 1.9 mg/dL (0.6-1.3); GLUCOSE 123 mg/dL (74-106); POTASSIUM 3.8 mmol/L (3.5-5.1); SODIUM SERUM 138 mmol/L (136-145); UREA NITROGEN, BLOOD 25 mg/dL (7-18)
--- NOTE | 2019-10-16 11:11 | NUR ---
PANEL ON-CALL PAGED
[2019-10-16 11:21] LABS: ALANINE AMINOTRANSFERASE 17 U/L (12-78); ALBUMIN 3.4 g/dL (3.4-5.0); ALKALINE PHOSPHATASE 97 U/L (46-116); ASPARTATE AMINOTRANSFERASE 11 U/L (15-37); B-TYPE NATRIURETIC PEPTIDE 794 PG/ML (0-125); BILIRUBIN,TOTAL 0.1 mg/dL (0.2-1.0); TOTAL PROTEIN, SERUM 7.2 g/dL (6.4-8.2)
[2019-10-16 11:46] LABS: CREATINE KINASE, TOTAL 29 U/L (39-308); FERRITIN 248 ng/mL (8-388)
[2019-10-16 11:48] LABS: C-REACTIVE PROTEIN 1.6 mg/dL (0.0-0.9)
[2019-10-16 12:02] LABS: D-DIMER 3.6 mg/L(FEU (0.17-0.50)
--- NOTE | 2019-10-16 12:55 | NUR ---
Report given to Soon RN for tim.
[2019-10-16] MEDS ORDERED: IV NS 0.9% 1,000 ML IV PRN (12:56)
[2019-10-16] MEDS ORDERED: MAG HYDROX/AL HYDROX/SIMETH 30 ML UDC PO PRN (13:00)
[2019-10-16] MEDS ORDERED: Medication Not On Formulary EA (Testosterone Cypionate 200 MG) INJ SCH (13:00)
[2019-10-16] MEDS ORDERED: ONDANSETRON HCL/PF 4 MG/2 ML VIAL IVP PRN (13:00)
[2019-10-16] MEDS ORDERED: Z GUARD REMEDY 2 OZ OINT TP PRN (13:00)
[2019-10-16] MEDS ORDERED: ACETAMINOPHEN 325 MG TABLET PO PRN (13:00)
[2019-10-16] MEDS ORDERED: ALBUTEROL SULFATE INH 18 GM HFA.AER.AD IH PRN (13:00)
[2019-10-16] MEDS ORDERED: MAGNESIUM HYDROXIDE 30 ML UDC PO PRN (13:00)
--- NOTE | 2019-10-16 13:24 | NUR ---
wheeled patient via gurney accompanied by RN and emt in no distress. RN at bedside to assume care.
[2019-10-16 13:30] VITALS: BP 134/95
--- NOTE | 2019-10-16 13:30 | NUR ---
RN NOTES ADMITTED FROM ER, DX HYPOTENSION NEAR SYNCOPAL PER JANAY LABOY ASSET RECOVERY SPECIALIST, AAO X 3, ABLE TO EXPRESS SELF AND NEEDS. ON ROOM AIR, NO SOB, NOT IN ANY DISTRESS, SINUS RHYTHM ON MONITOR. DENIES CHEST PAIN OR DISCOMFORT, LEFT FA G 18 IV ACCESS, FLUSHES WELL, SITE CLEAR, CCHO DIET. SEE NURSING FLOWSHEET FOR SKIN ASSESSMENT. GAVE UNIT ORIENTATION AND USED OF CALL LIGHT, VERBALIZED UNDERSTANDING. PHOTOS OF SKIN ISSUES TAKEN AND PLACED IN CHART. BED LOW LOCKED, SR UP X 2, ISOLATION PRECAUTION FOR R/O COVID. WILL CONT TO MONITOR.
--- NOTE | 2019-10-16 13:45 | NUR ---
RN NOTES PATIENT WILL ASK SON TO BRING HIS HIV MEDICATIONS, PER HIM, HE CAN SKIP TAKING TESTOSTERONE AND HIS HERBAL SUPPLEMENT. [facility] INFORMED.
[2019-10-16 16:00] VITALS: BP 135/90
[2019-10-16] MEDS ORDERED: ALBUTEROL SULFATE 8 GM HFA.AER.AD IH PRN (16:22)
[2019-10-16] MEDS: IV NS 0.9% 1,000 ML IV PRN ×2 (17:51→23:05)
--- NOTE | 2019-10-16 19:08 | NUR ---
RN NOTES ALL NEEDS ATTENDED AT THIS TIME. REPORT GIVEN TO EDUARDO FOR EASTON.
--- NOTE | 2019-10-16 19:20 | NUR ---
RN OPENING NOTES: Received pt in bed A&Ox4. On isolation for R/O Covid. On 2L/min NC tolerating well. No SOB or respiratory distress noted. SR on tele monitor. LFA #18 patent and flushing. with NS infusing at 200ml/hr. Safety measures in place. Will continue to monitor.
[2019-10-16 20:20] VITALS: BP 156/94
[2019-10-16] MEDS: GABAPENTIN 300 MG CAPSULE PO SCH (21:26)
[2019-10-16] MEDS: TAMSULOSIN 0.4 MG CAP.SR.24H PO SCH (21:26)
[2019-10-16 21:53] VITALS: BP 156/94
[2019-10-16] MEDS ORDERED: [UNRECOGNIZED DRUG - OTHER] PO SCH (22:00)
[2019-10-17] VITALS (8 sets, daily range): BP systolic 122–162; BP diastolic 77–106
--- NOTE | 2019-10-17 | NUR ---
PAGED SOFTWARE DESIGN MANAGER HOSPITALIST DR. FERNANDEZ REGARDING NEGATIVE COVID SWAB RESULT, ALSO MADE AWARE PER PROTOCOL WE NEED TO TRANSFER PATIENTS TO CLEAN/DIFFERENT UNIT, ORDERED TO HOLD TRANSFERS UNTIL TOMORROW MORNING. FISH SALTER MADE AWARE. WILL ATTEND TO ORDERS.
[2019-10-17] MEDS: IV NS 0.9% 1,000 ML IV PRN (04:27)
--- NOTE | 2019-10-17 05:12 | NUR ---
RN NOTE: Pt noted to have BP of 150/100. Checked different extremities and BP continued to be elevated. Checked manual BP and got 142/88. Checked pt's orthostatic BP - laying down: 142/88, standin/96, standin/94.
--- NOTE | 2019-10-17 06:45 | NUR ---
RN CLOSING NOTES: Pt resting in bed, A&Ox4. On RA, O2 sat WNL. SR on tele monitor. No SOB or respiratory distress noted throughout shift. No acute changes noted during shift. All meds administered as ordered. Safety measures in place. Will endorse to AM nurse for EASTON.
[2019-10-17 07:09] LABS: BASOPHILS # (AUTO) 0.1 /CMM (0.0-0.2); BASOPHILS % (AUTO) 0.9 % (0.0-2.0); EOSINOPHILS % (AUTO) 3.6 % (0.0-6.0); HEMATOCRIT 28 % (39-51); HEMOGLOBIN 9.4 g/dL (13.5-17.5); LYMPHOCYTES # (AUTO) 2.3 /CMM (0.8-4.8); LYMPHOCYTES % (AUTO) 31.6 % (20.0-44.0); MEAN CORPUSCULAR HGB CONC 33 g/dl (31.0-36.0); MEAN CORPUSCULAR VOLUME 90 fL (80-96); MONOCYTES # (AUTO) 0.7 /CMM (0.1-1.30); NEUTROPHILS # (AUTO) 3.8 /CMM (1.8-8.9); NEUTROPHILS % (AUTO) 53.9 % (43.0-81.0); PLATELET COUNT (AUTO) 399 /CMM (150-450); RED BLOOD CELL COUNT(AUTO) 3.14 MIL/uL (4.5-6.0); WHITE BLOOD COUNT (AUTO) 7.1 K/uL (4.3-11.0)
[2019-10-17 07:20] LABS: THYROID STIMULATING HORMONE 2.963 uIU/mL (0.358-3.74)
[2019-10-17 07:26] LABS: ALBUMIN 3.2 g/dL (3.4-5.0); BILIRUBIN,TOTAL 0.3 mg/dL (0.2-1.0); CALCIUM, SERUM 8.7 mg/dL (8.5-10.1); CREATININE 1.4 mg/dL (0.6-1.3); MAGNESIUM 1.6 mg/dL (1.8-2.4); PHOSPHORUS 3.5 mg/dL (2.5-4.9); POTASSIUM 4.1 mmol/L (3.5-5.1); TOTAL PROTEIN, SERUM 6.8 g/dL (6.4-8.2)
--- NOTE | 2019-10-17 07:35 | NUR ---
RN NOTE REPORT CALLED AND GIVEN TO GENE FOR CONTINUITY OF CARE. WILL TRANSFER PATIENT TO 3WEST PER MD ORDER. ROOM 313-1. SAFETY MAINTAINED, CALL LIGHT WITHIN REACH, WILL TRANSFER THE PATIENT RIGHT NOW.
[2019-10-17] MEDS: ACYCLOVIR 800 MG TABLET PO SCH (08:02)
[2019-10-17] MEDS: MULTIVITAMINS,THERAGRAN 1 UDTAB TABLET PO SCH (08:02)
[2019-10-17] MEDS: ASPIRIN 81 MG TAB.CHEW PO SCH (08:03)
[2019-10-17] MEDS: CALCIUM CARB 600MG /VIT D 1 EACH TABLET PO SCH (08:03)
[2019-10-17] MEDS: SERTRALINE HCL 50 MG TABLET PO SCH (08:03)
[2019-10-17] MEDS: ARIPIPRAZOLE 5 MG TABLET PO SCH (08:03)
--- NOTE | 2019-10-17 08:30 | NUR ---
RN NOTE PATIENT TRANSFERRED TO 3W ROOM 313-1. SCHEDULED 0900 MEDS GIVEN ON TIME. ENDORSED TO GENE THAT PER ULTRA SOUND, PATIENT RETAINING 377ML OF URINE. SAFETY MAINTAINED. CALL LIGHT WITHIN REACH, ENDORSED FOR CONTINUITY OF CARE.
--- NOTE | 2019-10-17 09:10 | NUR ---
MS RN NOTES RECEIVED PT FROM [facility] VIA BED AT 0840AM. PT A/O X3-4. PT TOLERATING RA, WITH NO ACUTE RESPIRATORY DISTRESS NOTED. PT DENIES ANY PAIN OR DISCOMFORT AT THIS TIME. PT ALSO DENIES ANY QUESTIONS OR CONCERNS. PIV TO LFA G18, CONSUMING LAST BAG/3RD BAGOF NS AT 200ML/HR, INTACT AND OPERATIONAL. BELONGINGS CHECKED AND RECEIVED, BOTH BLACK BOOTS PRESENT. PER ITZEL NURSE 375ML RETAINED IN THE BLADDER BEFORE TRANSFER, PT ABLE TO URINATE IN THE URINAL AROUND 9AM AT 300ML. PT DENIES ANY DISCOMFORT ON THE BLADDER AREA. PT KEPT COMFORTABLE IN BED. CALL LIGHT KEPT WITHIN REACH. PT'S BED IN LOWEST, LOCKED POSITION WITH SR X3. WILL CONTINUE PLAN OF CARE.
--- NOTE | 2019-10-17 09:37 | NUR ---
RN NOTE NOTIFIED MAY RN THAT PATIENT BP WAS SLIGHTLY ELEVATED. SHE WILL FOLLOW UP.
--- NOTE | 2019-10-17 10:00 | NUR ---
MS RN NOTES VITALS RE CHECKED, DUE TO HIGH BP. TAKEN AND RECORDED.
[2019-10-17 10:55] LABS: IRON, SERUM 60 ug/dl (50-175); TOTAL IRON BINDING CAPACITY 227 ug/dl (250-450)
[2019-10-17 11:08] LABS: FERRITIN 233 ng/mL (8-388)
--- NOTE | 2019-10-17 11:10 | NUR ---
MS RN NOTES CALLED AND LEFT DETAILED MESSAGE TO BETTIE REGARDING PT'S HOME MEDICINE. PER PT, HE'LL TRY TO CALL WELL THROUGH HIS CELLPHONE. WILL CONITINUE TO MONITOR.
[2019-10-17] MEDS: Magnesium 1GM/D5W 100ML PREMIX 100 ML IV SCH ×2 (11:26→16:14)
--- NOTE | 2019-10-17 12:14 | NUR ---
MS RN NOTES VERIFIED ORDER WITH PHARMACIST REGARDING TO GIVE NS AT 20ML/HR WITH TOTAL OFF 3LITERS. 3RD BAG FINISHED AND ADMINISTERED. ORDER PLACED INACCURATELY. CLARIFIED AND DISCONTINUED. WILL CONTINUE TO MONITOR PT.
--- NOTE | 2019-10-17 16:14 | NUR ---
MS RN NOTES RECEIVED SOME BELONGINGS FROM [facility] AND 18BOTTLES OF HOME MEDS. ALL MEDS SENT TO PHARMACY, RECEIVED BY [facility].
--- NOTE | 2019-10-17 16:58 | NUR ---
MS RN NOTES PT'S 2D ECHO AND CAROTID ULTRASOUND ON GOING. TECH AT BEDSIDE AT THIS TIME.
[2019-10-17] MEDS: ABACAVIR LAMIVUDINE PO SCH (17:28)
--- NOTE | 2019-10-17 18:37 | NUR ---
MS RN NOTES PT REMAINS IN BED, AWAKE, A/O X3-4. PT TOLERATING RA, WITH NO ACUTE RESPIRATORY DISTRESS NOTED. PT DENIES ANY PAIN OR DISCOMFORT AT THIS TIME. PIV TO RFA G20, FLUSHED WITH NS, INTACT AND OPERATIONAL. ALL NEEDS AND CARE ATTENDED. PT KEPT COMFORTABLE IN BED. CALL LIGHT KEPT WITHIN REACH. PT'S BED IN LOWEST, LOCKED POSITION WITH SR X3. WILL ENDORSE TO INCOMING NIGHT NURSE FOR EASTON.
--- NOTE | 2019-10-17 19:15 | NUR ---
MS RN NOTES RECEIVED PT IN BED AWAKE AND ABLE TO MAKE NEEDS KNOWN. PT A/O X3. RESPIRATIONS EVEN AND UNLABORED WITH NO S/S OF ACUTE DISTRESS OR SOB NOTED. NO COMPLAINTS OF PAIN AT THIS TIME. PT NOTED WITH RFA #20G PATENT AND INTACT AND SL. SAFETY MEASURES IN PLACE WITH BED IN LOWEST LOCKED POSITION WITH SIDE RAILS UP X2. CALL LIGHT WITHIN REACH. WILL CONTINUE TO MONITOR.
[2019-10-17] MEDS: GABAPENTIN 300 MG CAPSULE PO SCH (21:55)
[2019-10-17] MEDS: TAMSULOSIN 0.4 MG CAP.SR.24H PO SCH (21:55)
[2019-10-18 06:00] VITALS: BP_SYST 102; BP_SYST 138; BP_SYST 90; BP_DIAS 63; BP_DIAS 65; BP_DIAS 89
[2019-10-18 07:06] LABS: BASOPHILS # (AUTO) 0.1 /CMM (0.0-0.2); EOSINOPHILS % (AUTO) 3.9 % (0.0-6.0); HEMATOCRIT 28 % (39-51); HEMOGLOBIN 9.8 g/dL (13.5-17.5); LYMPHOCYTES # (AUTO) 1.7 /CMM (0.8-4.8); LYMPHOCYTES % (AUTO) 28.4 % (20.0-44.0); MEAN CORPUSCULAR HGB CONC 34 g/dl (31.0-36.0); MEAN CORPUSCULAR VOLUME 89 fL (80-96); MONOCYTES # (AUTO) 0.6 /CMM (0.1-1.30); MONOCYTES % (AUTO) 10.1 % (2.0-12.0); NEUTROPHILS # (AUTO) 3.5 /CMM (1.8-8.9); NEUTROPHILS % (AUTO) 56.6 % (43.0-81.0); PLATELET COUNT (AUTO) 391 /CMM (150-450); RED BLOOD CELL COUNT(AUTO) 3.21 MIL/uL (4.5-6.0); WHITE BLOOD COUNT (AUTO) 6.1 K/uL (4.3-11.0)
--- NOTE | 2019-10-18 07:10 | NUR ---
MS RN NOTES PT IN BED AWAKE AND ABLE TO MAKE NEEDS KNOWN. PT A/O X3. RESPIRATIONS EVEN AND UNLABORED WITH NO S/S OF ACUTE DISTRESS OR SOB NOTED THROUGHOUT SHIFT. NO COMPLAINTS OF PAIN AT THIS TIME. PT NOTED WITH RFA #20G PATENT AND INTACT AND SL. SAFETY MEASURES IN PLACE WITH BED IN LOWEST LOCKED POSITION WITH SIDE RAILS UP X2. CALL LIGHT WITHIN REACH. WILL ENDORSE TO ONCOMING NURSE FOR EASTON.
[2019-10-18 07:22] LABS: CALCIUM, SERUM 9.1 mg/dL (8.5-10.1); CREATININE 1.4 mg/dL (0.6-1.3); MAGNESIUM 1.9 mg/dL (1.8-2.4); POTASSIUM 3.7 mmol/L (3.5-5.1)
[2019-10-18 08:00] VITALS: BP 113/74
--- NOTE | 2019-10-18 08:00 | NUR ---
RN OPENING NOTE Patient is resting in bed, A/O x3, showing no signs of acute distress or SOB, stable on RA. IV line is clean and intact flushing well. Right foot boot noted, skin assessed, skin remains intact. Bed is in lowest position, side rails x3 in upright position, call light is within reach. Will continue with plan of care.
[2019-10-18] MEDS: POTASSIUM CHLORIDE 20 MEQ TAB.PRT.SR PO SCH ×3 (08:14→10:20)
[2019-10-18] MEDS: ACYCLOVIR 800 MG TABLET PO SCH (08:15)
[2019-10-18] MEDS: MULTIVITAMINS,THERAGRAN 1 UDTAB TABLET PO SCH (08:15)
[2019-10-18] MEDS: SERTRALINE HCL 50 MG TABLET PO SCH (08:15)
[2019-10-18] MEDS: ASPIRIN 81 MG TAB.CHEW PO SCH (08:15)
[2019-10-18] MEDS: ARIPIPRAZOLE 5 MG TABLET PO SCH (08:16)
[2019-10-18] MEDS: CALCIUM CARB 600MG /VIT D 1 EACH TABLET PO SCH (08:22)
[2019-10-18 09:07] LABS: *SPE ALBUMIN 2.9 g/dL (2.9-4.4); *SPE ALPHA-1-GLOBULIN 0.2 g/dL (0.0-0.4); *SPE ALPHA-2-GLOBULIN 0.8 g/dL (0.4-1.0); *SPE BETA GLOBULIN 0.9 g/dL (0.7-1.3); *SPE GLOBULIN, TOTAL 2.9 g/dL (2.2-3.9); *SPE M-SPIKE 0.2 g/dL (Not Observed); *SPEGAMMA GLOBULIN 0.9 g/dL (0.4-1.8)
[2019-10-18] MEDS: ABACAVIR LAMIVUDINE PO SCH (09:18)
[2019-10-18] MEDS: IV NS 0.9% 1,000 ML IV PRN (15:19)
[2019-10-18 16:00] VITALS: BP 120/73
[2019-10-18 17:00] VITALS: BP_SYST 130; BP_SYST 145; BP_SYST 146; BP_DIAS 77; BP_DIAS 88
--- NOTE | 2019-10-18 19:15 | NUR ---
MS RN NOTES RECEIVED PT IN BED AWAKE AND ABLE TO MAKE NEEDS KNOWN. PT A/O X3. RESPIRATIONS EVEN AND UNLABORED WITH NO S/S OF ACUTE DISTRESS OR SOB NOTED. NO COMPLAINTS OF PAIN AT THIS TIME. PT NOTED WITH RFA #20G PATENT AND INTACT INFUSING NS @100CC/HR. SAFETY MEASURES IN PLACE WITH BED IN LOWEST LOCKED POSITION WITH SIDE RAILS UP X2. CALL LIGHT WITHIN REACH. WILL CONTINUE TO MONITOR.
--- NOTE | 2019-10-18 19:31 | NUR ---
RN CLOSING NOTE Patient is resting in bed, A/O x3, showing no signs of acute distress or SOB, stable on RA. IV line is clean and intact flushing well running NS @100ml/hour. All patient needs met, all due medications given, patient kept clean and dry throughout shift. Bed is in lowest position, side rails x3 in upright position, call light is within reach. Will endorse to night supervisor.
[2019-10-18 20:00] VITALS: BP 137/90
[2019-10-18] MEDS: GABAPENTIN 300 MG CAPSULE PO SCH (22:13)
[2019-10-18] MEDS: TAMSULOSIN 0.4 MG CAP.SR.24H PO SCH (22:13)
[2019-10-19] MEDS: IV NS 0.9% 1,000 ML IV PRN (02:03)
[2019-10-19 06:00] VITALS: BP_SYST 122; BP_SYST 134; BP_SYST 137; BP_DIAS 76; BP_DIAS 81; BP_DIAS 90
--- NOTE | 2019-10-19 06:58 | NUR ---
MS RN NOTES PT IN BED AWAKE AND ABLE TO MAKE NEEDS KNOWN. PT A/O X3. RESPIRATIONS EVEN AND UNLABORED WITH NO S/S OF ACUTE DISTRESS OR SOB NOTED THROUGHOUT SHIFT. NO COMPLAINTS OF PAIN AT THIS TIME. PT NOTED WITH RFA #20G PATENT AND INTACT INFUSING NS @100CC/HR. SAFETY MEASURES IN PLACE WITH BED IN LOWEST LOCKED POSITION WITH SIDE RAILS UP X2. CALL LIGHT WITHIN REACH. WILL ENDORSE TO ONCOMING NURSE FOR EASTON.
--- NOTE | 2019-10-19 07:45 | NUR ---
MS RN OPENING NOTES RECEIVED PATIENT IN BED, ASLEEP. PATIENT BREATHING ON ROOM AIR SATURATING WELL; BREATHING EVEN AND UNLABORED. NO SIGNS OF PAIN SUCH FACIAL GRIMACING OR GUARDING, MOANING. RFA IV ACCESS G # 20. SAFETY PRECAUTIONS IN PLACE; BED IN LOW POSITION AND LOCKED, RAILS UP X2, CALL LIGHT WITHIN REACH. WILL CONTINUE TO MONITOR PATIENT.
[2019-10-19 08:00] VITALS: BP 145/87
[2019-10-19] MEDS: ASPIRIN 81 MG TAB.CHEW PO SCH (08:20)
[2019-10-19] MEDS: SERTRALINE HCL 50 MG TABLET PO SCH (08:20)
[2019-10-19] MEDS: MULTIVITAMINS,THERAGRAN 1 UDTAB TABLET PO SCH (08:20)
[2019-10-19] MEDS: ARIPIPRAZOLE 5 MG TABLET PO SCH (08:20)
[2019-10-19] MEDS: ABACAVIR LAMIVUDINE PO SCH (08:21)
[2019-10-19] MEDS: ACYCLOVIR 800 MG TABLET PO SCH (08:21)
[2019-10-19] MEDS: CALCIUM CARB 600MG /VIT D 1 EACH TABLET PO SCH (08:23)
--- NOTE | 2019-10-19 09:00 | NUR ---
PT. Refused. DEE Yepez and maintenance engineer Diane aware.
[2019-10-19] MEDS ORDERED: BENA10TA74 PO (13:37)
[2019-10-19] MEDS ORDERED: CARV12.5 PO (13:37)
--- NOTE | 2019-10-19 18:31 | NUR ---
MS DIRECTOR RECREATION NOTES PATIENT DISCHARGED HOME IN MEDICALLY STABLE CONDITION. ALL DISCHARGE PAPERWORK PROVIDED AND SIGNED. TEACHING REGARDING MEDS AND FOLLOW UP APPOINTMENT DONE; PATIENT VERBALIZED UNDERSTANDING. PHOTOS TAKEN AND FILED. BEFORE LEAVING THE FLOOR IV ACCESS WAS REMOVED TOGETHER WITH ID BAND. PATIENT LEFT THE FLOOR ACCOMPANIED BY THE RN AND LEFT THE HOSPITAL IN A PRIVATE CAR WITH HIS FRIEND.
[2019-10-20] MEDS ORDERED: BENAZEPRIL HCL 10 MG TABLET PO SCH (09:00)
== END 2019-10-19 18:30 | disposition home or self-care (01) | DRG 73 ==
LOC: ER 10:23 → TELE-TD 12:58 → MERGE 12:58 → TELE1 14:20 → MED 10-17 08:32
PROVIDERS: ADMIT Nurse Practitioner Acute Care; ATTEND Nurse Practitioner Acute Care
DX: G90.8 Other disorders of autonomic nervous system (principal); N17.0 Acute kidney failure with tubular necrosis; E87.2 Acidosis; I95.1 Orthostatic hypotension; E11.22 Type 2 diabetes mellitus with diabetic chronic kidney disease; E86.0 Dehydration; D64.9 Anemia, unspecified; D47.3 Essential (hemorrhagic) thrombocythemia; J45.909 Unspecified asthma, uncomplicated; E11.42 Type 2 diabetes mellitus with diabetic polyneuropathy; G89.29 Other chronic pain; M54.9 Dorsalgia, unspecified; M41.9 Scoliosis, unspecified; E66.9 Obesity, unspecified; Z68.32 Body mass index [BMI] 32.0-32.9, adult; D47.2 Monoclonal gammopathy; F41.9 Anxiety disorder, unspecified; I12.9 Hypertensive chronic kidney disease with stage 1 through stage 4 chronic kidney disease, or unspecified chronic kidney disease; N18.9 Chronic kidney disease, unspecified; Z88.2 Allergy status to sulfonamides; F19.10 Other psychoactive substance abuse, uncomplicated
CPT/HCPCS: 36415; 71045-TC; 76770-TC; 80048-TC; 80053-TC; 80061-TC; 80076-TC; 82550-TC; 82728-TC; 83540-TC; 83605-TC; 83615-TC; 83735-TC; 83880; 83970; 84100-TC; 84155; 84165; 84443-TC; 84484-TC; 85025-TC; 85378-TC; 85652-TC; 85730-TC; 86140-TC; 86850-TC; 87040-TC; 87081-TC; 93307-TC; 93880-TC; 97110-TC; 97116-TC; 97530-TC; G0378; J3475; J7030; J7050; U0003-CS

== ENCOUNTER 2019-12-04 15:30 | Outpatient (CLI) | payer MEDICARE ==
[~2019-12-04 15:30] MED LIST changes: +BENA10TA74 PO; +CARV12.5 PO; -CARV25TA PO; -CYAN500T66 PO
== END 2019-12-04 23:59 | disposition home or self-care (01) ==
LOC: RAD 15:30 → MERGE 15:30 → RAD 23:59
PROVIDERS: ATTEND Internal Medicine Hematology & Oncology
DX: C90.00 Multiple myeloma not having achieved remission (principal); D47.2 Monoclonal gammopathy; M50.30 Other cervical disc degeneration, unspecified cervical region; M51.35 Other intervertebral disc degeneration, thoracolumbar region; I51.7 Cardiomegaly; I70.0 Atherosclerosis of aorta; J98.11 Atelectasis; M40.204 Unspecified kyphosis, thoracic region
CPT/HCPCS: 77075-TC

== ENCOUNTER 2021-08-04 19:30 | Inpatient (IN) | payer BC, MEDICARE ==
[~2021-08-04] VITALS: Ht 175.3 cm; Wt 113.4 kg
[~2021-08-04 19:30] MED LIST changes: +ABAC1TAB PO; -ABAC1TAB17 PO; +ACYC-108 PO; -ACYC800T PO; +AMLO-213 PO; -AMLO10TA7 PO
--- NOTE | 2021-08-04 19:40 | NUR ---
BIBS C/O RIGHT SIDED CHEST PAIN RADIATING TO RIGHT SHOULDER X2 DAYS. PATIENT ALERT AND ORIENTED X3. AMBULATORY WITH NON LABORED BREAHTING. PATIENT IN A GOWN ON MONITOR AND POX.
--- NOTE | 2021-08-04 19:50 | NUR ---
EMT @ BEDSIDE FOR EKG.
--- NOTE | 2021-08-04 19:55 | NUR ---
RFA #18G S/L PATENT AND INTACT. BLOOD COLLECTED AND SENT TO LAB
--- NOTE | 2021-08-04 20:01 | NUR ---
PRINCIPAL INVESTIGATOR AT PT'S BEDSIDE
--- NOTE | 2021-08-04 20:02 | NUR ---
COVID SWAB DONE AND SENT TO LAB
--- NOTE | 2021-08-04 20:20 | NUR ---
SPOKE TO MICHAEL FOURNIER
[2021-08-04 20:32] LABS: BASOPHILS # (AUTO) 0.1 K/uL (0.0-0.2); EOSINOPHILS % (AUTO) 6.5 % (0.0-6.0); HEMATOCRIT 38 % (39-51); HEMOGLOBIN 11.9 g/dL (13.5-17.5); LYMPHOCYTES % (AUTO) 27.2 % (20.0-44.0); MEAN CORPUSCULAR HGB CONC 32 g/dl (31.0-36.0); MEAN CORPUSCULAR VOLUME 86 fL (80-96); MONOCYTES # (AUTO) 0.7 K/uL (0.1-1.30); MONOCYTES % (AUTO) 9.1 % (2.0-12.0); NEUTROPHILS # (AUTO) 4.1 K/uL (1.8-8.9); NEUTROPHILS % (AUTO) 56.2 % (43.0-81.0); PLATELET COUNT (AUTO) 306 K/uL (150-450); WHITE BLOOD COUNT (AUTO) 7.4 K/uL (4.3-11.0)
[2021-08-04 20:46] LABS: CALCIUM, SERUM 9.3 mg/dL (8.5-10.1); CARBON DIOXIDE 31 mmol/L (21-32); CHLORIDE 101 mmol/L (98-107); CREATININE 1.3 mg/dL (0.6-1.3); GLUCOSE 98 mg/dL (74-106); POTASSIUM 4.5 mmol/L (3.5-5.1); SODIUM SERUM 136 mmol/L (136-145); UREA NITROGEN, BLOOD 22 mg/dL (7-18)
[2021-08-04 20:58] LABS: ALANINE AMINOTRANSFERASE 24 U/L (12-78); ALBUMIN 3.6 g/dL (3.4-5.0); ALKALINE PHOSPHATASE 117 U/L (46-116); ASPARTATE AMINOTRANSFERASE 13 U/L (15-37); BILIRUBIN,DIRECT 0.1 mg/dL (0.0-0.2); BILIRUBIN,TOTAL 0.3 mg/dL (0.2-1.0); TOTAL PROTEIN, SERUM 7.4 g/dL (6.4-8.2)
[2021-08-04] MEDS ORDERED: IV NS 0.9% 1,000 ML BAG IV ONE (21:30)
--- NOTE | 2021-08-04 21:30 | NUR ---
MRSA SWAB COLLECTED AND SENT TO LAB. PATIENT'S BELONGINGS LIST DONE.
--- NOTE | 2021-08-04 21:59 | NUR ---
PT SEEN BY Maris NICHOLSON
--- NOTE | 2021-08-04 22:08 | NUR ---
CAREY , HOSPITALIST AT BED SIDE
[2021-08-04] MEDS ORDERED: CT SWABBABLE VALVE TRANS SET 1 EA INFUS.SET MC ONE (22:16)
[2021-08-04] MEDS ORDERED: IOHEXOL-350 100 ML VIAL IV ONE (22:16)
[2021-08-04] MEDS ORDERED: IV NS 0.9% 250 ML IV ONE (22:16)
--- NOTE | 2021-08-04 22:36 | NUR ---
INFORMED DR SANCHEZ TO HOLD METFORMIN X 2 DAYS PER RADIOLOGY
[2021-08-04] MEDS ORDERED: NITROGLYCERIN 0.4 MG/TAB BOTTLE SL PRN (23:00)
[2021-08-04] MEDS ORDERED: ACETAMINOPHEN 325 MG TABLET PO PRN (23:00)
[2021-08-04] MEDS ORDERED: DEXTROSE 50%-WATER 50 ML DISP.SYRIN IV PRN (23:00)
[2021-08-04] MEDS ORDERED: LABETALOL 20 MG/4 ML VIAL IV PRN (23:00)
[2021-08-04] MEDS ORDERED: MORPHINE SULFATE INJ 2 MG/ML DISP.SYRIN IV PRN (23:00)
[2021-08-04] MEDS ORDERED: hydrALAZINE HCL IV 20 MG VIAL IV PRN (23:00)
[2021-08-04] MEDS ORDERED: ONDANSETRON HCL/PF 4 MG/2 ML VIAL IVP PRN (23:00)
[2021-08-04] MEDS ORDERED: INSULIN REGULAR, HUMAN 100 UNIT/ML 3 ML VIAL SQ PRN (23:00)
[2021-08-04] MEDS ORDERED: ZOLPIDEM TARTRATE 10 MG TABLET PO PRN (23:00)
--- NOTE | 2021-08-04 23:05 | NUR ---
REPORT GIVEN TO ANGELO
--- NOTE | 2021-08-04 23:18 | NUR ---
TRANSFERRED TO THIRD FLOOR UNDER ACLS
[2021-08-04] MEDS: ENOXAPARIN SODIUM 40 MG/0.4 ML DISP.SYRIN SQ SCH (23:52)
--- NOTE | 2021-08-05 00:01 | NUR ---
IGNITION EXPERTPRINTED CIRCUIT BOARD PCB DRAFTSMAN NOTE PATIENT ARRIVED ON UNIT, ALERT/ORIENTED X 4, PT ABLE TO MAKE NEEDS KNOWN. PT DENIES CHEST PAIN AT THIS TIME. PATIENT STABLE ON RA, NO S/S OF DISTRESS OR SOB NOTED, BREATHING EVEN AND UNLABORED. PT ON EXTERNAL SANITATION TANK WASHER READING SINUS RHYTHM, HR: 63. IV ACCESS ON RIGHT FOREARM #18G INTACT AND FLUSHING WELL, SALINE LOCKED. PATIENT BELONGING CHECKLIST COMPLETED AND PLACED IN CHART. PATIENT STATES HE USES A WHEEL CHAIR AT HOME, RIGHT FOOT HAS BOOT DUE TO CHARCOT'S FOOT, HAS HAD MULTIPLE SURGERIES, PT DID NOT WANT TO REMOVE BOOT AT THIS TIME. PATIENT REFUSED TO CHANGE INTO GOWN, STATED HE PREFERS TO STAY IN HIS OWN CLOTHING. ORIENTED PATIENT TO UNIT AND HOW TO USE CALL LIGHT AND REMOTE CONTROL. SAFETY MEASURES IN PLACE: CALL LIGHT WITHIN REACH, SIDE RAILS UP X 2, BED LOCKED IN LOW POSITION, BED ALARM ON. WILL CONTINUE TO MONITOR PATIENT
[2021-08-05 04:00] VITALS: BP 126/67
--- NOTE | 2021-08-05 07:30 | NUR ---
SPECIAL EDUCATION PARAPROFESSIONAL OPENING NOTES PATIENT SLEEPS IN BED,OPENS EYES UPON CALLING HIS NAME. ALERT/ORIENTED X 4, PT ABLE TO MAKE NEEDS KNOWN. PT STABLE ON RA, NO S/S OF DISTRESS OR SOB NOTED, BREATHING EVEN AND UNLABORED. PT ON EXTERNAL TRIMMER HAND READING SINUS RHYTHM. IV ACCESS ON RIGHT FOREARM G # [address] INTACT. SAFETY MEASURES IN PLACE: CALL LIGHT AND TABLE WITHIN REACH, SIDE RAILS UP X 2, BED LOCKED IN LOW POSITION, BED ALARM ON.WILL CONTINUE TO MONITOR.
[2021-08-05 07:38] LABS: ALBUMIN 3.4 g/dL (3.4-5.0); BILIRUBIN,TOTAL 0.3 mg/dL (0.2-1.0); CALCIUM, SERUM 8.4 mg/dL (8.5-10.1); CREATININE 1.3 mg/dL (0.6-1.3); MAGNESIUM 1.8 mg/dL (1.8-2.4); POTASSIUM 4.1 mmol/L (3.5-5.1)
[2021-08-05 07:42] LABS: BASOPHILS # (AUTO) 0.1 K/uL (0.0-0.2); BASOPHILS % (AUTO) 0.8 % (0.0-2.0); HEMATOCRIT 36 % (39-51); HEMOGLOBIN 11.8 g/dL (13.5-17.5); LYMPHOCYTES # (AUTO) 1.8 K/uL (0.8-4.8); LYMPHOCYTES % (AUTO) 26.1 % (20.0-44.0); MEAN CORPUSCULAR HGB CONC 32 g/dl (31.0-36.0); MEAN CORPUSCULAR VOLUME 85 fL (80-96); MONOCYTES # (AUTO) 0.6 K/uL (0.1-1.30); MONOCYTES % (AUTO) 8.1 % (2.0-12.0); NEUTROPHILS # (AUTO) 4.1 K/uL (1.8-8.9); PLATELET COUNT (AUTO) 286 K/uL (150-450); RED BLOOD CELL COUNT(AUTO) 4.26 MIL/uL (4.5-6.0)
[2021-08-05] MEDS: BLOOD SUGAR DIAGNOSTIC 1 EACH STRIP IN SCH ×4 (07:42→22:24)
--- NOTE | 2021-08-05 07:54 | NUR ---
FORM BUILDING SUPERVISOR CLOSING NOTE PATIENT AWAKE IN BED, ALERT/ORIENTED X 4, PT ABLE TO MAKE NEEDS KNOWN. PT STABLE ON RA, NO S/S OF DISTRESS OR SOB NOTED, BREATHING EVEN AND UNLABORED. PT ON EXTERNAL GOLDSMITH APPRENTICE READING SINUS RHYTHM, HR: 93. NO SIGNIFICANT CHANGED THROUGHOUT SHIFT. MEDICATIONS GIVEN ORDERED, PT NEEDS MET THROUGHOUT SHIFT. SAFETY MEASURES IN PLACE: CALL LIGHT WITHIN REACH, SIDE RAILS UP X 2, BED LOCKED IN LOW POSITION, BED ALARM ON. ENDORSED TO DAY SHIFT NURSE FOR CONTINUITY OF CARE
[2021-08-05] MEDS ORDERED: ALBUTEROL FS 2.5 MG/0.5 ML VIAL.NEB NEB PRN (08:30)
--- NOTE | 2021-08-05 09:03 | NUR ---
WOUND CARE CONSULT: PT PRESENTS WITH CAM BOOT ON RT LOWER EXTREMITY. REMOVED BOOT AND BILATERAL COMPRESSION SOCKS. THERE IS REDNESS TO RT FOOT AND ANKLE, PRESENT ON ADMISSION. DR TATUM NOTIFIED OF DPM CONSULT. PT DEMONSTRATES ABILITY TO TURN AND REPOSITION IN BED. MD IN AGREEMENT WITH PLAN OF CARE.
[2021-08-05] MEDS: SERTRALINE HCL 50 MG TABLET PO SCH ×2 (09:21→16:49)
[2021-08-05] MEDS: ASPIRIN 81 MG TAB.CHEW PO SCH (09:22)
[2021-08-05] MEDS: ACYCLOVIR 800 MG TABLET PO SCH (09:22)
[2021-08-05] MEDS: CALCIUM CARBONATE (1250) 500 MG TABLET PO SCH ×2 (09:22→16:49)
[2021-08-05] MEDS: BENAZEPRIL HCL 10 MG TABLET PO SCH (09:23)
[2021-08-05] MEDS: CARVEDILOL 12.5 MG TABLET PO SCH ×2 (09:23→16:50)
[2021-08-05] MEDS: AMLODIPINE BESYLATE 10 MG TABLET PO SCH (09:24)
--- NOTE | 2021-08-05 18:43 | NUR ---
OPERATIONS SPECIALISTS CLOSING NOTES PATIENT AWAKE IN BED BETTIE VISITING THE PATIENT. ALERT/ORIENTED X 4, PT ABLE TO MAKE NEEDS KNOWN. PT STABLE ON RA, NO S/S OF DISTRESS OR SOB NOTED, BREATHING EVEN AND UNLABORED. PT ON EXTERNAL DRAFTER GEOPHYSICAL READING SINUS RHYTHM. IV ACCESS ON RIGHT FOREARM G # 18 INTACT. ALL DUE MEDS GIVEN ORDERED. SAFETY MEASURES IN PLACE: CALL LIGHT AND TABLE WITHIN REACH, SIDE RAILS UP X 2, BED LOCKED IN LOW POSITION, BED ALARM ON.WILL ENDORSE FOR EASTON.
--- NOTE | 2021-08-05 19:45 | NUR ---
MERCHANDISE ASSOCIATE OPENING NOTES RECEIVED PATIENT AWAKE IN BED. A/O X 4, PT ABLE TO MAKE NEEDS KNOWN. PT STABLE ON RA, NO SOB OR S/S OF RESPIRATORY DISTRESS NOTED. ON EXTERNAL TSO READING SR. IV ACCESS ON RFA 18 GAUGE, INTACT AND PATENT. SAFETY PRECAUTIONS IN PLACE. BED IN LOWEST LOCKED POSITION, HOB ELEVATED, SIDE RAILS UP X2, AND CALL LIGHT AND TABLE WITHIN REACH. WILL CONTINUE WITH PLAN OF CARE.
[2021-08-05 20:00] VITALS: BP 102/68
[2021-08-05] MEDS ORDERED: GABAPENTIN 300 MG CAPSULE PO SCH (22:00)
[2021-08-05] MEDS ORDERED: TAMSULOSIN 0.4 MG CAP.SR.24H PO SCH (22:00)
[2021-08-05] MEDS: ENOXAPARIN SODIUM 40 MG/0.4 ML DISP.SYRIN SQ SCH (22:39)
[2021-08-06] VITALS: BP 104/68
[2021-08-06] MEDS: BLOOD SUGAR DIAGNOSTIC 1 EACH STRIP IN SCH ×2 (07:03→11:31)
--- NOTE | 2021-08-06 07:22 | NUR ---
SATELLITE MANAGER CLOSING NOTES PATIENT AWAKE IN BED. A/O X 4, PT ABLE TO MAKE NEEDS KNOWN. PT STABLE ON RA, NO SOB OR S/S OF RESPIRATORY DISTRESS NOTED. ON EXTERNAL ELECTRICIAN CRANE MAINTENANCE READING SR. IV ACCESS ON RFA 18 GAUGE, INTACT AND PATENT. ALL NEEDS MET AT THIS TIME. SAFETY PRECAUTIONS IN PLACE AT ALL TIMES. BED IN LOWEST LOCKED POSITION, HOB ELEVATED, SIDE RAILS UP X2, AND CALL LIGHT AND TABLE WITHIN REACH. WILL ENDORSE TO ONCOMING NURSE FOR [place].
--- NOTE | 2021-08-06 07:30 | NUR ---
OB/GYN OPENING NOTES RECEIVED PATIENT IN BED, AWAKE, A/O X4, VERBALLY RESPONSIVE, NO SIGNS OF ACUTE DISTRESS NOTED. IV ACCESS ON RIGHT FOREARM #18G, INTACT AND PATENT, SALINE LOCKED. NO C/O PAIN AT THIS TIME. ON TELE MONITOR SHOWING SINUS RHYTHM, HR @76. SAFETY MEASURES IN PLACE. BED IN LOWEST LOCKED POSITION, SR UP X2, CALL LIGHT PLACED WITHIN EASY REACH. WILL CONTINUE TO MONITOR PATIENT.
[2021-08-06 08:00] VITALS: BP 107/75
[2021-08-06] MEDS: ACYCLOVIR 800 MG TABLET PO SCH (08:29)
[2021-08-06] MEDS: CALCIUM CARBONATE (1250) 500 MG TABLET PO SCH (08:29)
[2021-08-06] MEDS: CARVEDILOL 12.5 MG TABLET PO SCH (08:29)
[2021-08-06] MEDS: SERTRALINE HCL 50 MG TABLET PO SCH (08:29)
[2021-08-06] MEDS: AMLODIPINE BESYLATE 10 MG TABLET PO SCH (08:29)
[2021-08-06] MEDS: BENAZEPRIL HCL 10 MG TABLET PO SCH (08:29)
[2021-08-06] MEDS: ASPIRIN 81 MG TAB.CHEW PO SCH (08:29)
[2021-08-06] MEDS ORDERED: ABACAVIR LAMIVUDINE PO SCH (09:00)
[2021-08-06] MEDS ORDERED: NEVIRAPINE 400 MG PO SCH (09:00)
[2021-08-06 11:48] VITALS: BP 85/53
--- NOTE | 2021-08-06 15:40 | NUR ---
TRAFFIC SIGN ERECTION SUPERVISOR NOTES PATIENT DISCHARGED HOME IN STABLE CONDITION. ALERT AND ORIENTED X4, VERBALLY RESPONSIVE, ABLE TO MAKE NEEDS KNOWN. VITAL SIGNS TAKEN, STABLE. ALL BELONGINGS ACCOUNTED FOR, FORMS SIGNED BY PATIENT. IV ACCESS ON RFA REMOVED, NO BLEEDING NOTED. PRESSURE DRESSING APPLIED. ARM NAME BAND REMOVED. EXIT CARE FOLDER GIVEN TO PATIENT. DISCHARGE INSTRUCTIONS PROVIDED, WITH VERBALIZATION OF UNDERSTANDING. PATIENT LEFT UNIT @1530, ACCOMPANIED BY BRENT LENNON TO THE LOBBY VIA W/C. PATIENT PICKED UP BY FRIEND BETTIE. CN AWARE OF DISCHARGE.
== END 2021-08-06 15:30 | disposition home or self-care (01) | DRG 206 ==
LOC: ER 19:33 → TELE 21:26
PROVIDERS: ADMIT Internal Medicine; ATTEND Internal Medicine
DX: M94.0 Chondrocostal junction syndrome [Tietze] (principal); L03.115 Cellulitis of right lower limb; E11.610 Type 2 diabetes mellitus with diabetic neuropathic arthropathy; I10 Essential (primary) hypertension; J44.9 Chronic obstructive pulmonary disease, unspecified; D64.9 Anemia, unspecified; E11.40 Type 2 diabetes mellitus with diabetic neuropathy, unspecified; Z79.82 Long term (current) use of aspirin; R74.8 Abnormal levels of other serum enzymes; Z79.899 Other long term (current) drug therapy; Z79.84 Long term (current) use of oral hypoglycemic drugs; Z20.822 Contact with and (suspected) exposure to COVID-19
CPT/HCPCS: 36415; 71045-TC; 80048-TC; 80053-TC; 80076-TC; 82962-TC; 83605-TC; 83735-TC; 83880; 84100-TC; 84484-TC; 85025-TC; 85378-TC; 87081-TC; 93307-TC; 97116-TC; 97530-TC; C9803; G0378; J1650; J1815; J7050; Q9967